=== PATIENT | female | born 1950 | race Caucasian/White ===

== ENCOUNTER → 2020-05-03 | Outpatient (CLI) | payer MEDICARE ==
--- NOTE | 2020-05-04 16:00 | BD ---
EXAMINATION TYPE: Axial Bone Density DATE OF EXAM: 05/03/2020 COMPARISON: 11/23/2015 CLINICAL HISTORY: Height: 66.7 IN Weight: 121 LBS FRAX RISK QUESTIONS: Secondary Osteoporosis: 2. Hyperthyroidism: YES RISK FACTORS HISTORY OF: Active: YES Diet low in dairy products/other sources of calcium: YES Postmenopausal woman: AGE 48 Take estrogen and/or progesterone medications: NOT NOW How lon YEAR MEDICATIONS: Thyroid Medications: YES Which medication: Levothyroxine How Lon Osteoporosis Medications: NOT NOW Which medication: Fosamax How Lon YEARS Additional Medications: CALCIUM, VIT D, LEVOTHYROXINE, LIPITOR, EXAM MEASUREMENTS: Bone mineral densitometry was performed using the [employer] System. Bone mineral density as measured about the Lumbar spine is: ----- L1-L4(G/cm2): 0.829 T Score Values are as follows: ----- L2: -2.7 ----- L3: -2.6 ----- L4: -3.6 ----- L1-L4: -2.9 Bone mineral density has: Decreased -1.1% since study of: 11/23/2015 Bone mineral density about the R hip (g/cm2): 0.774 Bone mineral density about the L hip (g/cm2): 0.793 T Score values are as follows: -----R Neck: -1.9 -----L Neck: -1.8 -----R Total: -2.5 -----L Total: -2.4 Bone mineral density has: Decreased -7.6% since study of: 11/23/2015 IMPRESSION: Osteoporosis (T Score less than -2.5). There is increased fracture risk and therapy is usually indicated based on age. Re-Screen 1-2 years. NOTE: T-SCORE=SD OF THE YOUNG ADULT MEAN.
--- NOTE | 2020-05-17 12:12 | MM ---
Reason for exam: screening (asymptomatic). Last mammogram was performed 1 year and 8 months ago. History: Patient is postmenopausal. Family history of breast cancer in mother and breast cancer in maternal grandmother. 4 excisional biopsies of the right breast. Took estrogen for 2 months. Took progesterone for 2 months. Physical Findings: A clinical breast exam by your physician is recommended on an annual basis and results should be correlated with mammographic findings. MG 3D Screening Mammo W/Cad Bilateral CC and MLO view(s) were taken. Prior study comparison: September 04, 2018, mammogram, performed at [place]. June 29, 2016, bilateral MG 3d screening mammo w/cad. March 22, 2015, bilateral MG screening mammo w CAD. The breast tissue is heterogeneously dense. This may lower the sensitivity of mammography. There are benign appearing round dystrophic calcifications bilaterally. There is no discrete abnormality. ASSESSMENT: Benign, BI-RAD 2 RECOMMENDATION: Routine screening mammogram of both breasts in 1 year.
== END | disposition home or self-care (01) ==
LOC: RADMAMWWP 14:21
PROVIDERS: ATTEND Internal Medicine
DX: Z12.31 Encounter for screening mammogram for malignant neoplasm of breast (principal); M81.0 Age-related osteoporosis without current pathological fracture
CPT/HCPCS: 77063; 77067; 77080

== ENCOUNTER → 2021-06-16 | Outpatient (CLI) | payer MEDICARE ==
--- NOTE | 2021-06-20 11:07 | MM ---
Reason for exam: screening (asymptomatic). Last mammogram was performed 1 year and 1 month ago. History: Patient is postmenopausal. Family history of breast cancer in mother and breast cancer in maternal grandmother. 4 excisional biopsies of the right breast. Took hormonal contraceptives for 2 years. Took estrogen for 2 months. Took progesterone for 2 months. Physical Findings: A clinical breast exam by your physician is recommended on an annual basis and results should be correlated with mammographic findings. MG 3D Screening Mammo W/Cad Bilateral CC and MLO view(s) were taken. Prior study comparison: May 03, 2020, bilateral MG 3d screening mammo w/cad. September 04, 2018, mammogram, performed at [place]. There are scattered fibroglandular densities. Previous mammotome biopsy in the left breast. No significant changes when compared with prior studies. ASSESSMENT: Benign, BI-RAD 2 RECOMMENDATION: Routine screening mammogram of both breasts in 1 year.
== END | disposition home or self-care (01) ==
LOC: RADMAMWWP 09:50
PROVIDERS: ATTEND Internal Medicine
DX: Z12.31 Encounter for screening mammogram for malignant neoplasm of breast (principal); Z80.3 Family history of malignant neoplasm of breast
CPT/HCPCS: 77063; 77067

== ENCOUNTER → 2022-02-27 | Outpatient (CLI) | payer MEDICARE ==
--- NOTE | 2022-02-27 14:05 | XR ---
Left wrist HISTORY: Left wrist pain 4 views the left wrist There is widening of the scapholunate distance. Remodeling is present at the radiocarpal joint. Bone mineralization is reduced. Radial styloid shows lucency which is suspect is chronic distally, correla te for history of trauma. IMPRESSION: Scapholunate dissociation, secondary osteoarthritis, correlate for prior trauma.
== END | disposition home or self-care (01) ==
LOC: RADXRMAIN 10:52
PROVIDERS: ATTEND Internal Medicine
DX: M19.032 Primary osteoarthritis, left wrist (principal)

== ENCOUNTER → 2022-03-19 | Outpatient (CLI) | payer MEDICARE ==
--- NOTE | 2022-03-19 09:13 | XR ---
EXAMINATION TYPE: XR KUB DATE OF EXAM: 03/19/2022 COMPARISON: NONE HISTORY: Pain TECHNIQUE: One view abdominal series FINDINGS: The osseous structures are intact. The bowel gas pattern is nonspecific. Scoliotic curvature of the spine. Calcifications in the right pelvic base and are likely outside the course of the tract. Keith cifications overlying the renal outlines are not identified. IMPRESSION: 1. Nonspecific abdomen.
== END | disposition home or self-care (01) ==
LOC: RADXRMAIN 08:05
PROVIDERS: ATTEND Internal Medicine
DX: R10.9 Unspecified abdominal pain (principal); R82.90 Unspecified abnormal findings in urine
CPT/HCPCS: 74018

== ENCOUNTER → 2022-05-07 | Outpatient (CLI) | payer MEDICARE ==
--- NOTE | 2022-05-07 10:15 | BD ---
EXAMINATION TYPE: Axial Bone Density DATE OF EXAM: 05/07/2022 COMPARISON: NONE CLINICAL HISTORY: 71 years year old Female. ICD-10 CODE: M81.0 OSTEOPOROSIS Height: 67 Weight: 120.5 FRAX RISK QUESTIONS: Alcohol (3 or more units per day): NO Family History (Parent hip fracture): NO Glucocorticoids (More than 3mos): NO History of Fracture in Adulthood: NO Secondary Osteoporosis: 1. Type 1 Diabetes: NO 2. Hyperthyroidism: NO 3. Menopause before 45: NO 4. Malnutrition: NO 5. Chronic liver disease: NO Rheumatoid Arthritis: NO Current Tobacco Use: NO RISK FACTORS HISTORY OF: Hip Fracture (Right/Left): NO Spine Fracture: NO History of Wrist Fracture: NO Surgery to Spine/Hip(right/left)/Wrist (right/left): NO Family History of Osteoporosis: NO Active: YES Diet low in dairy products/other sources of calcium: YES Postmenopausal woman: YES Take estrogen and/or progesterone medications: NO Lost more than 2 inches in height since high school: NO Frequent falls: NO Poor Health: NO Hyperparathyroidism: NO Adrenal Insufficiency: NO MEDICATIONS: Prednisone or other steroids: NO Thyroid Medications: LEVOTHYROXIN How Lon YEARS Osteoporosis Medications: NO Additional Medications: ATORVASTATIN, LEVOTHYROXIN, MULTI VIT., CALCIUM Additional History: EXAM MEASUREMENTS: Bone mineral densitometry was performed using the [employer] System. Bone mineral density as measured about the Lumbar spine is: ----- L1-L4(G/cm2): 0.813 T Score Values are as follows: ----- L1: -3.1 ----- L2: -2.6 ----- L3: --2.7 ----- L4: -3.8 ----- L1-L4: -3.1 Bone mineral density has: DECREASED 2.6 % since study of: 11/23/2015 Bone mineral density about the R hip (g/cm2): 0.777 Bone mineral density about the L hip (g/cm2): 0.821 T Score values are as follows: -----R Neck: -1.9 -----L Neck: -1.6 -----R Total: -2.3 -----L Total: -2.0 Bone mineral density has: DECREASE 3.7 % since study of: 11/23/2015 FRAX%s: The graph provided illustrates a 10.2% chance for a major osteoporotic fx and a 2.5% chance f or the hips probability for fx in 10 years time. IMPRESSION: Osteoporosis (T Score less than -2.5). There is increased fracture risk and therapy is usually indicated based on age. Re-Screen 1-2 years. NOTE: T-SCORE=SD OF THE YOUNG ADULT MEAN.
== END | disposition home or self-care (01) ==
LOC: RADBDWWP 09:00
PROVIDERS: ATTEND Internal Medicine
DX: M81.0 Age-related osteoporosis without current pathological fracture (principal)
CPT/HCPCS: 77080

== ENCOUNTER 2023-02-15 21:41 | Inpatient (IN) | payer MEDICARE ==
[2023-02-15 21:57] LABS: Basophils % (A) 0 %; Eosinophils # (A) 0.2 k/uL (0-0.7); Eosinophils % (A) 1 %; HCT 36.2 % (34.0-46.0); HGB 12.4 gm/dL (11.4-16.0); Lymphocytes # (A) 0.8 k/uL (1.0-4.8); Lymphocytes % (A) 4 %; MCH 30.9 pg (25.0-35.0); MCHC 34.4 g/dL (31.0-37.0); Mean Platelet Volume 6.5; Monocytes # (A) 0.6 k/uL (0-1.0); Monocytes % (A) 3 %; Neutrophils # (A) 16.3 k/uL (1.3-7.7); Neutrophils % (A) 91 %; Platelet Count 369 k/uL (150-450); RBC 4.02 m/uL (3.80-5.40); WBC 17.9 k/uL (3.8-10.6)
--- NOTE | 2023-02-15 22:11 | XR ---
EXAMINATION TYPE: XR chest 1V portable DATE OF EXAM: 02/15/2023 10:03 PM COMPARISON: None TECHNIQUE: XR chest 1V portable Frontal view of the chest. CLINICAL INDICATION:Female, 72 years old with history of altered mental status; FINDINGS: Lungs/Pleura: Prominent interstitial lung markings are seen scattered throughout the lungs. No eviden ce of focal consolidation, pneumothorax or pleural effusion. Pulmonary vascularity: Unremarkable. Heart/mediastinum: Cardiomediastinal silhouette is unremarkable. Musculoskeletal: No acute osseous pathology. IMPRESSION: Chronic changes without acute pulmonary process. No significant change from prior.
--- NOTE | 2023-02-15 22:11 | CT ---
EXAMINATION TYPE: CT brain wo con CT DLP: 1177 mGycm, Automated exposure control for dose reduction was used. DATE OF EXAM: 02/15/2023 9:56 PM COMPARISON: None. CLINICAL INDICATION:Female, 72 years old with history of Neuro deficit, acute, stroke suspected, TECHNIQUE: Brain: Axial CT images of the brain were obtained with coronal and sagittal reformats created and rev iewed. Contrast used: None. Oral contrast used: None. FINDINGS: Brain: Extra-axial spaces: No abnormal extra-axial fluid collections. Ventricular system: Within normal limits Cerebral parenchyma: Intra-axial masslike area within the right temporal lobe measuring 5.1 x 4.5 x 3 .0 cm. There is mild surrounding vasogenic edema. No acute intraparenchymal hemorrhage or mass effect . The moreno-white junction is well differentiated. Cerebellum: Unremarkable. Mass effect: Leftward shift up to 10 mm. Intracranial vasculature: unremarkable Soft tissues: Normal. Calvarium/osseous structures: No depressed skull fracture. Paranasal sinuses and mastoid air cells: Mild scattered paranasal sinus disease. Visualized orbits: Orbital contents are intact. IMPRESSION: 1. Right temporal lobe masslike area with surrounding vasogenic edema. Findings suspicious for neopl asm versus other etiologies felt to be less likely. Further evaluation with MRI is recommended. There is associated leftward 10 mm midline shift. 2. No evidence for acute/subacute CVA.
[2023-02-15 22:15] LABS: ALT 22 U/L (4-34); AST 23 U/L (14-36); African American GFR (CKD) >90 (>60 ml/min/1.73 sqM); Albumin 4.4 g/dL (3.5-5.0); Alkaline Phosphatase 69 U/L (38-126); Anion Gap 13 mmol/L; Blood Urea Nitrogen 15 mg/dL (7-17); Calcium 9.3 mg/dL (8.4-10.2); Carbon Dioxide 24 mmol/L (22-30); Chloride 95 mmol/L (98-107); Creatine Kinase 37 U/L (30-135); Glucose 155 mg/dL (74-99); Non-African American GFR(CKD) 86 (>60 ml/min/1.73 sqM); Potassium 4.5 mmol/L (3.5-5.1); Sodium 132 mmol/L (137-145); Total Bilirubin 0.9 mg/dL (0.2-1.3); Total Protein 7.2 g/dL (6.3-8.2)
[2023-02-15 22:30] LABS: Partial Thromboplastin Time 21.5 sec (22.0-30.0)
[2023-02-15 22:35] LABS: Prothrombin Time 10.6 sec (9.0-12.0)
--- NOTE | 2023-02-15 22:58 | CT ---
EXAMINATION TYPE: CT angio head neck CT DLP: 417 mGycm, Automated exposure control for dose reduction was used. DATE OF EXAM: 02/15/2023 10:25 PM COMPARISON: CT same day CLINICAL INDICATION:Female, 72 years old with history of Neuro deficit, acute, stroke suspected; PHH, CODE STROKE TECHNIQUE: Axially acquired helical CT angiogram of the head and neck was obtained with contrast. Axi al images are supplemented with 3D reconstructions which [facility] NASCET criteria used. Contrast used:65 CC mL of Isovue 370 with IV Contrast, Oral contrast used: None. FINDINGS: CTA HEAD: Stable intracranial mass within the right cerebrum/temporal lobe with leftward midline shift. There m ay be a couple curvilinear vessels entering this mass series 406 image 48. No evidence of acute intracranial hemorrhage, mass effect. The ventricles, sulci, and cisterns are un remarkable. Bilaterally aphakia. The visualized portions of the internal carotid arteries, middle cerebral arteries, anterior cerebral arteries, and posterior cerebral arteries are patent. The basilar and vertebral arteries are patent. CTA NECK: Right Carotid System: The common carotid artery and external carotid artery are patent. The carotid bifurcation demonstrate s no evidence of hemodynamically significant stenosis. The remaining portions of the internal carotid artery demonstrate normal size without significant narrowing. Left Carotid System: The common carotid artery and external carotid artery are patent. The carotid bifurcation demonstrate s no evidence of hemodynamically significant stenosis. The remaining portions of the internal carotid artery demonstrate normal size without significant narrowing. Vertebral arteries are patent without evidence hemodynamically significant stenosis. There is a three-vessel aortic arch. The origins of the great vessels are patent. No evidence of hemo dynamically significant stenosis. Upper thorax: IMPRESSION: 1. No evidence of dissection of the cervical internal carotid arteries or vertebral arteries or any e vidence of significant stenosis at the carotid bifurcations. 2. No evidence of intracranial high-grade stenosis or intracranial aneurysm. 3. Right temporal lobe probable mass as seen on prior CT.
[2023-02-15] MEDS ORDERED: DEXAMETHASONE SOD PHOSPHATE 10 MG/ML 1 ML VIAL IVP STA (23:16)
[2023-02-15] MEDS ORDERED: MORPHINE SULFATE 2 MG/ML SYRINGE IVP STA (23:48)
[2023-02-16] MEDS ORDERED: MORPHINE SULFATE 2 MG/ML SYRINGE IV PRN (00:28)
[2023-02-16] MEDS ORDERED: ACETAMINOPHEN TAB 325 MG TAB PO PRN (00:28)
[2023-02-16] MEDS ORDERED: NALOXONE 0.4 MG/ML 1 ML VIAL IV PRN (00:28)
--- NOTE | 2023-02-16 03:24 | ED ---
General Adult HPI - General Chief complaint: Weakness Stated complaint: Stroke-like symptoms Time Seen by Provider: 02/15/23 21:45 Source: patient, family, EMS, RN notes reviewed, old records reviewed Mode of arrival: EMS - History of Present Illness Initial comments: She is a 72-year-old female who presents emergency Department as a code stroke. Has a history of brain cancer recently diagnosed. Patient is DO NOT RESUSCITATE. Elected for no surgeries. Patient presents with family over concern for left-sided weakness of the upper and lower extremities that was onset sometime over the last 24 hours. No known exact time of onset. He is not on blood thinners. Also has a mild headache. Denies any chest pain or shortness of breath. Denies any abdominal pain, nausea, vomiting. Presents with the weakness and evaluation for possible stroke. Patient did receive a bio psy last week, and was on steroids for vasogenic edema, however has been off them for the last 4 days. They do not want any procedures done. Was going to speak with oncology about possible palliative treatments. - Related Data Home Medications Medication Instructions Recorded Confirmed ALPRAZolam [Xanax] 0.5 - 1 mg PO DAILY PRN 02/15/23 02/15/23 Atorvastatin [Lipitor] 20 mg PO HS 02/15/23 02/15/23 Cholecalciferol [Vitamin D3 (25 25 mcg PO DAILY 02/15/23 02/15/23 Mcg = 1000 Iu)] Levothyroxine Sodium [Synthroid] 25 mcg PO SUSA 02/15/23 02/15/23 Levothyroxine Sodium [Synthroid] 50 mcg PO DAILY 02/15/23 02/15/23 Multivitamins, Thera [Multivitamin 0.5 tab PO BID 02/15/23 02/15/23 (formulary)] Omeprazole 20 mg PO DAILY 02/15/23 02/15/23 Sertraline [Zoloft] 50 mg PO DAILY 02/15/23 02/15/23 dexAMETHasone [Decadron] 1 mg PO DAILY 02/15/23 02/15/23 levETIRAcetam [Keppra] 500 mg PO Q12HR 02/15/23 02/15/23 Allergies Allergy/AdvReac Type Severity Reaction Status Date / Time No Known Allergies Allergy Verified 02/15/23 22:39 Review of Systems ROS Statement: Those systems with pertinent positive or pertinent negative responses have been documented in the HPI. Review of Systems: CONST: Denies fever EYES: Denies blurry vision ENT: Denies nasal congestion C/V: Denies Chest pain RESP: Denies shortness of breath GI: Denies abdominal pain : Denies dysuria SKIN: Denies rash. MSK: Denies joint pain. NEURO: Endorses left-sided weakness ROS Other: All systems not noted in ROS Statement are negative. General Exam - General Exam Comments Initial Comments: General: Appears in no acute distress. HEAD: Normal with no signs of head trauma. EYES: PERRLA, EOMI, conjunctiva normal, no discharge. ENT: Hearing grossly intact, normal oropharynx. RESPIRATORY: Clear breath sounds bilaterally. No wheezes, rales, or rhonchi. C/V: Regular rate and rhythm. S1 and S2 auscultated, peripheral pulses 2+ and intact throughout ABD: Abd is soft, nontender, nondistended EXT: Normal range of motion, no obvious deformity SKIN: No rashes or lesions observed on exposed skin. NEURO: Alert and oriented 3-4. NIH is approximately 3, 1. for left upper extremity weakness, 1. for left lower extremity weakness, 1 point for left upper extremity ataxia. Course Vital Signs 02/15/23 02/15/23 02/15/23 21:43 22:15 23:00 Temperature 100.2 F H Pulse Rate 84 69 67 Respiratory 18 18 18 Rate Blood Pressure 146/71 128/70 114/67 O2 Sat by Pulse 96 96 98 Oximetry 02/16/23 01:10 Temperature Pulse Rate 70 Respiratory 18 Rate Blood Pressure 122/61 O2 Sat by Pulse 98 Oximetry Medical Decision Making - Medical Decision Making Was pt. sent in by a medical professional or institution (, PA, HAND EDGER, urgent care, hospital, or retirement...) When possible be specific @ -No Did you speak to anyone other than the patient for history (EMS, parent, family, police, friend...)? What history was obtained from this source @ -Spoke with the patient's as well as the patient regarding CODE STATUS as well as patient's current complaints. This includes the desire for no surgical intervention, and possible palliative care. Did you review nursing and triage notes (agree or disagree)? Why? @ -I reviewed and agree with nursing and triage notes Were old charts reviewed (outside hosp., previous admission, EMS record, old EKG, old radiological studies, urgent care reports/EKG's, retirement records)? Report findings @ -No old charts were reviewed Differential Diagnosis (chest pain, altered mental status, abdominal pain women, abdominal pain men, vaginal bleeding, weakness, fever, dyspnea, syncope, headache, dizziness, GI bleed, back pain, seizure, CVA, palpatations, mental health, musculoskeletal)? @ -Differential CVA Ischemic stroke, hemorrhagic stroke, brain tumor, atypical migraine, Wernicke's encephalopathy, seizure, multiple sclerosis, meningitis, encephalitis, hy poglycemia, Guillain-Friedman, electrolytes disturbance, myasthenia gravis.... This is not meant to be an all-inclusive list EKG interpreted by me (3pts min.). @ -As above X-rays interpreted by me (1pt min.). @ -Chest x-ray reveals no obvious acute cardio pulmonary process CT interpreted by me (1pt min.). @ -CT brain demonstrates an obvious right temporal mass surrounding vasogenic edema and patient does have some midline shift of approximately [address] angiogram of the brain redemonstrates this. No obvious CVA or occlusive process. U/S interpreted by me (1pt. min.). @ -None done What testing was considered but not performed or refused? (CT, X-rays, U/S, labs)? Why? @ -None What meds were considered but not given or refused? Why? @ -None Did you discuss the management of the patient with other professionals (professionals i.e. , PA, HAND EDGER, lab, RT, psych nurse, web content & social media manager, kiln charger, teacher, armor officer, patient case manager)? Give summary @ -Discussed management with the accepting physician Dr. Parks who is in agreement with the plan. Also discussed management with on-call neurology, Dr. Briggs. He was in agreement with keeping the patient here for treatment with IV steroids. We discussed imaging results including midline shift, vasogenic edema, as well as the history of brain cancer. As the patient is DNR/DNI, and no surgical interventions will be performed, any form of neurosurgical evaluation is extremely limited in terms of benefit. Was smoking cessation discussed for >3mins.? @ -No Was critical care preformed (if so, how long)? @ -Yes, 35 minutes. Were there social determinants of health that impacted care today? How? (Homelessness, low income, unemployed, alcoholism, drug addiction, transportation, low edu. Level, literacy, decrease access to med. care, halfway, rehab)? @ -No Was there de-escalation of care discussed even if they declined (Discuss DNR or withdrawal of care, Hospice)? DNR status @ -Yes I confirmed DO NOT RESUSCITATE status with patient as well as family. No desire for surgical intervention. What co-morbidities impacted this encounter? (DM, HTN, Smoking, COPD, CAD, Cancer, CVA, ARF, Chemo, Hep., AIDS, mental health diagnosis, sleep apnea, morbid obesity)? @ -Brain cancer Was patient admitted / discharged? Hospital course, mention meds given and route, prescriptions, significant lab abnormalities, going to OR and other pertinent info. @ -Based on the patient's presentation and physical exam, she presents as a code stroke. Initially presented with EMS alone. Unknown last known well, but it was some time within the last 24 hours. She has a history of brain cancer and therefore is not a TPA candidate. TPA is contraindicated. Risks far ou tweigh the benefits. NIH is 3. Code stroke was activated. We will obtain stroke labs. Patient was in agreement this plan. I spoke with stroke neuro critical care physician Dr. Gonzales who was in agreement this plan, as well as likely medical management concerning the patient's brain cancer. Imaging shows vasogenic edema with a right-sided temporal mass as well as midline shift. All secondary to brain cancer. No evidence of CVA. Labs otherwise are remarkable for mild leukocytosis of 17 the patient did recently just completed a course of steroids. Remainder of labs are unremarkable. I did speak with the patient as well as family at this time. We discussed possible transfer to any foreign where the biopsy was completed however they do not want any surgical intervention and wanted the patient to remain here at this hospital. Patient is DO NOT RESUSCITATE. They're looking for palliative care possibly with oncology. They understand the patient is a poor prognosis and they do not want any extra interventions that would not benefit the patient at this point. They declined transfer. I did speak with our neurologist on-call, Dr. Briggs who was in agreement keeping the patient here. He was in agreement with IV steroids, as I did start the patient on IV Decadron 10 mg and he recommended 6 mg every 6hr. Patient will be given IV morphine for her headache. After the patient's family and they were in agreement with this plan. They would like to remain here. Oncology was consulted. Neurology was consulted. I spoke with the admitting physician, Dr. Parks who accepted the patient. Undiagnosed new problem with uncertain prognosis? @ -No Drug Therapy requiring intensive monitoring for toxicity (Heparin, Nitro, Insulin, Cardizem)? @ -No Were any procedures done? @ -No Diagnosis/symptom? @ -Brain cancer, vasogenic edema, 10 mm midline shift. Acute, or Chronic, or Acute on Chronic? @ -Acute Uncomplicated (without systemic symptoms) or Complicated (systemic symptoms)? @ -Complicated Side effects of treatment? @ -No Exacerbation, Progression, or Severe Exacerbation? @ -No Poses a threat to life or bodily function? How? (Chest pain, USA, [place], pneumonia, PE, COPD, DKA, ARF, appy, cholecystitis, CVA, Diverticulitis, Homicidal, Suicidal, threat to staff... and all critical care pts) @ -Yes - Lab Data Result diagrams: 02/15/23 21:49 02/15/23 21:49 Lab Results 02/15/23 02/15/23 02/15/23 Range/Units 21:49 21:49 21:49 WBC 17.9 H (3.8-10.6) k/uL RBC 4.02 (3.80-5.40) m/uL Hgb 12.4 (11.4-16.0) gm/dL Hct 36.2 (34.0-46.0) % MCV 90.0 (80.0-100.0) fL MCH 30.9 (25.0-35.0) pg MCHC 34.4 (31.0-37.0) g/dL RDW 12.0 (11.5-15.5) % Plt Count 369 (150-450) k/uL MPV 6.5 Neutrophils % 91 % Lymphocytes % 4 % Monocytes % 3 % Eosinophils % 1 % Basophils % 0 % Neutrophils # 16.3 H (1.3-7.7) k/uL Lymphocytes # 0.8 L (1.0-4.8) k/uL Monocytes # 0.6 (0-1.0) k/uL Eosinophils # 0.2 (0-0.7) k/uL Basophils # 0.0 (0-0.2) k/uL PT 10.6 (9.0-12.0) sec INR 1.0 (<1.2) APTT 21.5 L (22.0-30.0) sec Sodium 132 L (137-145) mmol/L Potassium 4.5 (3.5-5.1) mmol/L Chloride 95 L (98-107) mmol/L Carbon Dioxide 24 (22-30) mmol/L Anion Gap 13 mmol/L BUN 15 (7-17) mg/dL Creatinine 0.70 (0.52-1.04) mg/dL Est GFR (CKD-EPI)AfAm >90 (>60 ml/min/1.73 sqM) Est GFR (CKD-EPI)NonAf 86 (>60 ml/min/1.73 sqM) Glucose 155 H (74-99) mg/dL Calcium 9.3 (8.4-10.2) mg/dL Total Bilirubin 0.9 (0.2-1.3) mg/dL AST 23 (14-36) U/L ALT 22 (4-34) U/L Alkaline Phosphatase 69 (38-126) U/L Creatine Kinase 37 (30-135) U/L Troponin I (0.000-0.034) ng/mL Total Protein 7.2 (6.3-8.2) g/dL Albumin 4.4 (3.5-5.0) g/dL 02/15/23 Range/Units 21:49 WBC (3.8-10.6) k/uL RBC (3.80-5.40) m/uL Hgb (11.4-16.0) gm/dL Hct (34.0-46.0) % MCV (80.0-100.0) fL MCH (25.0-35.0) pg MCHC (31.0-37.0) g/dL RDW (11.5-15.5) % Plt Count (150-450) k/uL MPV Neutrophils % % Lymphocytes % % Monocytes % % Eosinophils % % Basophils % % Neutrophils # (1.3-7.7) k/uL Lymphocytes # (1.0-4.8) k/uL Monocytes # (0-1.0) k/uL Eosinophils # (0-0.7) k/uL Basophils # (0-0.2) k/uL PT (9.0-12.0) sec INR (<1.2) APTT (22.0-30.0) sec Sodium (137-145) mmol/L Potassium (3.5-5.1) mmol/L Chloride (98-107) mmol/L Carbon Dioxide (22-30) mmol/L Anion Gap mmol/L BUN (7-17) mg/dL Creatinine (0.52-1.04) mg/dL Est GFR (CKD-EPI)AfAm (>60 ml/min/1.73 sqM) Est GFR (CKD-EPI)NonAf (>60 ml/min/1.73 sqM) Glucose (74-99) mg/dL Calcium (8.4-10.2) mg/dL Total Bilirubin (0.2-1.3) mg/dL AST (14-36) U/L ALT (4-34) U/L Alkaline Phosphatase (38-126) U/L Creatine Kinase (30-135) U/L Troponin I <0.012 (0.000-0.034) ng/mL Total Protein (6.3-8.2) g/dL Albumin (3.5-5.0) g/dL - EKG Data -: EKG Interpreted by Me EKG Comments: 12-lead Electrocardiogram Interpretation Note EKG was reviewed and interpreted by myself. 12-lead ECG performed at 2236 is interpreted by me as revealing normal sinus rhythm at a rate of 71 beats per minute. Mauldin is normal. MO Intervals 154 ms, QRS duration is 91 ms, QTc is 412 ms.. There were no ST or T wave abnormalities to suggest myocardial ischemia or injury. R wave progression across the precordium was satisfactory. By my interpretation this EKG is non-diagnostic for acute ischemia. Critical Care Time Critical Care Time: Yes Total Critical Care Time: 35 Disposition Clinical Impression: Brain cancer, Vasogenic edema, Midline shift of brain, DNR (do not resuscitate) Disposition: ADMITTED IP TO THIS [facility] Condition: Serious Time of Disposition: 00:11
[2023-02-16] MEDS: DEXAMETHASONE SOD PHOSPHATE 10 MG/ML 1 ML VIAL IVP SCH ×4 (06:16→23:31)
[2023-02-16] MEDS: levETIRAcetam 500 MG TAB PO SCH ×2 (10:29→20:51)
--- NOTE | 2023-02-16 12:20 | P.CNNES ---
History of Present Illness Consult date: 02/16/23 Requesting physician: Tesfaye Wilder Reason for Consult: stroke activiation, brain tumor History of Present Illness: This is a 72 year-old woman with history of brain cancer who presents image department because of left-sided weakness. Some of the history is obtained from patient's who is at bedside and some history from medical records. According to the is seems the patient yesterday was having bilateral leg weakness. He noticed that after the patient received tramadol. He noticed the symptoms began possibly early afternoon. And the episode lasted for at least 5 hours on total EMS was called. was adamant that that he did not feel she was weak on the left upper extremity according to him. No seizure-like activity was noted. She has completed her steroid medication and she was on steroids for 4 days and complete her dose on Saturday. Because of the headaches and her recent episode,did inform the her neurosurgeon I got about episode and as a result were given another dose of steroids yesterday. Patient and family do not want of Lian with any surgical intervention for the right brain mass. She had recent needle biopsy to slightly over a weeks ago and were informed that she has glioblastoma multiforme. Patient follows up with a neurosurgeon over at [facility]. Per , he stated patient has right brain mass and it was noted initially that she had a seizure in November 2022 while at [place] and she had MRI of the brain which showed the brain mass. She has not had any further seizures. She had two additional MRI Brain and most recent MRI of the brain was about 2 weeks ago and showed worsening of the brain mass with swelling. Per the ED team and family member or concerns the patient has a recent left- sided weakness over the past 24 hours before presented to the hospital. Unknown exact last normal. It seems the patient has a recent history of brain cancer and the she elected no surgery. Patient did receive biopsy for her cancer a week ago and she is on steroids for. Vasogenic edema however she's been off of them for the past 4 days ago. Family do not want any surgical intervention for brain cancer and considering speaking with her oncologist about palliative treatment. Patientis on Keppra 500mg every 12 hours and Decadron 1mg daily. Some of the workup during his hospital visit consisted of: Initial white blood cells 17.[address] head is reported as right temporal lobe mass like area with surrounding vasogenic edema. Finding suspicious for neoplasm versus other etiologies but to be less likely. Further evaluation with MRI is recommended. There is associated left for 10 mm midline shift. No evidence for acute/subacute CVA. I personally reviewed the CAT scan and in addition patient has constricted ventri lenore over the posterior/occipital right latera horn and very constricted 3rd ventricles. Has hydrocephalus over the left lateral horn. Per the ED team NIH stroke stacel is 3-4 and received points for 1 left upper extremity weakness, 1 left lower extremity weakness. 1 left upper extremity ataxia No IV tpa since unknown exact last normal and has brain mass and risk outweight the benefit. The ED note it seems that the patient coded is DO NOT RESUSCITATE or intubate and the there is no desire for surgical intervention and possible Pat of care. She has a vasogenic edema and the Dr. Briggs agreed for her to receive IV steroids. Review of Systems Review of system: The 12 point system was reviewed and apparent positive and negative per HPI. Medications and Allergies Home Medications Medication Instructions Recorded Confirmed Type ALPRAZolam [Xanax] 0.5 - 1 mg PO DAILY PRN 02/15/23 02/15/23 History Atorvastatin [Lipitor] 20 mg PO HS 02/15/23 02/15/23 History Cholecalciferol [Vitamin D3 (25 25 mcg PO DAILY 02/15/23 02/15/23 History Mcg = 1000 Iu)] Levothyroxine Sodium [Synthroid] 25 mcg PO SUSA 02/15/23 02/15/23 History Levothyroxine Sodium [Synthroid] 50 mcg PO DAILY 02/15/23 02/15/23 History Multivitamins, Thera [Multivitamin 0.5 tab PO BID 02/15/23 02/15/23 History (formulary)] Omeprazole 20 mg PO DAILY 02/15/23 02/15/23 History Sertraline [Zoloft] 50 mg PO DAILY 02/15/23 02/15/23 History dexAMETHasone [Decadron] 1 mg PO DAILY 02/15/23 02/15/23 History levETIRAcetam [Keppra] 500 mg PO Q12HR 02/15/23 02/15/23 History Allergies Allergy/AdvReac Type Severity Reaction Status Date / Time No Known Allergies Allergy Verified 02/15/23 22:39 Physical Examination - Vital Signs Vital Signs: Vital Signs Temp Pulse Resp BP Pulse Ox 02/16/23 08:28 97 02/16/23 06:39 70 14 103/49 96 02/16/23 03:47 75 20 122/59 98 02/16/23 03:19 98.9 F 02/16/23 01:10 70 18 122/61 98 02/15/23 23:00 67 18 114/67 98 02/15/23 22:15 69 18 128/70 96 02/15/23 21:43 100.2 F H 84 18 146/71 96 Intake and Output 02/15/23 02/16/23 02/16/23 22:59 06:59 14:59 Other: Weight 54.5 kg GENERAL: The patient is lying in bed and is not in acute distress. NEUROLOGICAL: Higher mental function: The patient is awake, alert, oriented to self and time. She stated she was in [place]. Patient is following simple commands. No aphasia and no neglect. Cranial nerves: The pupils are round, equal and reactive to light. Visual [place] is right homonymous hemianopsia. Extraocular movement is intact no nystagmus is noted. Facial sensation is normal to touch throughout. The facial strength is mild left lower facial weakness. Hearing is mildly to moderately decreased bilaterally to hand rub. Tongue is midline and moved [id number] without any difficulty. No dysarthria is noted. Shoulder shrug is normal bilaterally. Motor: The strength is 5 over 5 throughout. Normal tone and bulk. Cerebellum: Normal finger to nose bilaterally. Sensation: Sensation is normal to touch throughout. Reflexes (right/left): 1+ throughout. Plantars is upgoing over the right but mute over the left. Results - Laboratory Findings CBC and BMP: 02/15/23 21:49 02/15/23 21:49 Abnormal Lab Findings: Abnormal Labs 02/15/23 02/15/23 02/15/23 21:49 21:49 21:49 WBC 17.9 H Neutrophils # 16.3 H Lymphocytes # 0.8 L APTT 21.5 L Sodium 132 L Chloride 95 L Glucose 155 H Assessment and Plan Assessment: Acute transient bilateral leg weakness due to her significant right temporal mass with midline shift. Had NIH stroke scale of 3 per ED team. Cannot exclude focal seizure or rule out stroke/TIA Recent diagnosis of glioblastoma multiform. (has right temporal mass in 11/29 with vasogenic edema and midline shift and had needle biopsy slight above a week ago) . She rrefusing surgical intervention. History of seizure due to #2 in 11/2022 Plan: Per , they are not going to pursue with surgical intervention. They do not want her to be transferred for neurosurgical evaluation and understand she is poor porgnosis and want her to remain in our facility. She had recent MRI Brain about 2 weeks go and were told it was worse. She is following-up with neurosurgeon over at [facility]. She was started on Decadron 6mg every 6 hours with 10mg once. I started her on her home dose of Keppra 500mg every 12 hours. She is started on Morphine for pain. Oncology is consulted. The wants to speak and find out if radiation or chemotherapy will be any beneficial and if not he does not want them. I will not pursue any additional work-up and and patient are in agreement. Prognosis appears poor. is considering hospice. Thank you for the consultation. Time with Patient: Greater than 30
[2023-02-16] MEDS ORDERED: ALPRAZolam 0.5 MG TAB PO PRN (13:56)
[2023-02-16] MEDS ORDERED: DEXAMETHASONE 1 MG PO SCH (14:00)
[2023-02-16] MEDS: PANTOPRAZOLE 40 MG TABLET PO SCH (15:23)
[2023-02-16] MEDS: LEVOTHYROXINE 25 MCG TAB PO SCH (15:23)
[2023-02-16] MEDS: SERTRALINE 50 MG TAB PO SCH (15:23)
[2023-02-16] MEDS: MULTIVITAMINS, THERA 1 EACH TAB PO SCH (20:51)
[2023-02-16] MEDS ORDERED: ATORVASTATIN 20 MG TAB PO SCH (21:00)
[2023-02-16 21:47] LABS: Appearance,Urine Clear (Clear); Bilirubin,Urine Negative (Negative); Blood,Urine Negative (Negative); Color,Urine Yellow; Glucose,Urine (UA) Trace (Negative); Ketones,Urine Trace (Negative); Leukocyte Esterase,Urine Negative (Negative); Nitrite,Urine Negative (Negative); PH, Urine 6.5 (5.0-8.0); Protein,Urine Trace (Negative); Urobilinogen,Urine <2.0 mg/dL (<2.0)
[2023-02-17] MEDS: DEXAMETHASONE SOD PHOSPHATE 10 MG/ML 1 ML VIAL IVP SCH ×2 (05:56→11:13)
[2023-02-17] MEDS: MULTIVITAMINS, THERA 1 EACH TAB PO SCH (08:47)
[2023-02-17] MEDS: SERTRALINE 50 MG TAB PO SCH (08:48)
[2023-02-17] MEDS: levETIRAcetam 500 MG TAB PO SCH (08:48)
[2023-02-17] MEDS: PANTOPRAZOLE 40 MG TABLET PO SCH (08:48)
[2023-02-17] MEDS ORDERED: CHOLECALCIFEROL 25 MCG (1000 IU) TABLET PO SCH (09:00)
--- NOTE | 2023-02-17 10:47 | P.CONS ---
History of Present Illness - Reason for Consult Consult date: 02/16/23 glioblastoma Requesting physician: Tesfaye Wilder - Chief Complaint left sided weakness - History of Present Illness Patient is a 72 year old female with a significant history of glioblastoma. Patient was referred to Dr. Jam Adams. She has her first appt in clinic on 02/20/2023. She has also been referred to radiation oncology but has yet to f/u. HPI is limited as patient is a poor historian. Patient states that she had a seizure earlier this year at which time she had a brain MRI which revealed a mass. Patient recently had a biopsy within the last 1 to 2 weeks which confirmed glioblastoma and was subsequently started on dexamethasone. Patient presented to the emergency room for left-sided weakness and headache. Patient reports she was having a severe headache yesterday and rated it 9 out of 10. She denies visual disturbances, dizziness, and nausea vomiting. Patient also reports that her family's noticed that she was having left sided weakness at which time they brought her to the ER for further evaluation. She reports headache has improved, and that she doesn't feel like she is weaker on her left side. CT head revealed right temporal lobe masslike area with surrounding vasogenic edema. No evidence for acute/subacute CVA CTA head and neck revealed stable intracranial mass within the right cerebrum/temporal lobe with left word midline shift. No evidence of acute intracranial hemorrhage, mass effect. No evidence of dissection of the cervical internal carotid arteries or vertebral arteries or any evidence of significant stenosis at the carotid bifurcations and no evidence of intracranial high-grade stenosis or intracranial aneurysm. Chest x-ray showed chronic changes without acute pulmonary processes. Neurology consulted. Patient did have a temperature of 100.2 upon admission. UA negative for acute infection. WBC 17.9, hemoglobin 12.4, platelets 369,000. Review of Systems 10 point ROS is negative except as stated in the HPI Past Medical History - Past Family History Mother Family Medical History: Cancer Additional Family Medical History / Comment(s): of breast cancer Father Family Medical History: Cancer Additional Family Medical History / Comment(s): from colon cancer Medications and Allergies Home Medications Medication Instructions Recorded Confirmed Type ALPRAZolam [Xanax] 0.5 - 1 mg PO DAILY PRN 02/15/23 02/15/23 History Atorvastatin [Lipitor] 20 mg PO HS 02/15/23 02/15/23 History Cholecalciferol [Vitamin D3 (25 25 mcg PO DAILY 02/15/23 02/15/23 History Mcg = 1000 Iu)] Levothyroxine Sodium [Synthroid] 25 mcg PO SUSA 02/15/23 02/15/23 History Levothyroxine Sodium [Synthroid] 50 mcg PO DAILY 02/15/23 02/15/23 History Multivitamins, Thera [Multivitamin 0.5 tab PO BID 02/15/23 02/15/23 History (formulary)] Omeprazole 20 mg PO DAILY 02/15/23 02/15/23 History Sertraline [Zoloft] 50 mg PO DAILY 02/15/23 02/15/23 History dexAMETHasone [Decadron] 1 mg PO DAILY 02/15/23 02/15/23 History levETIRAcetam [Keppra] 500 mg PO Q12HR 02/15/23 02/15/23 History Allergies Allergy/AdvReac Type Severity Reaction Status Date / Time No Known Allergies Allergy Verified 02/15/23 22:39 Physical Exam Vitals: Vital Signs Temp Pulse Resp BP Pulse Ox 02/16/23 12:00 98.3 F 71 12 121/57 98 02/16/23 09:00 98 F 70 12 132/59 98 02/16/23 08:28 97 02/16/23 06:39 70 14 103/49 96 02/16/23 03:47 75 20 122/59 98 02/16/23 03:19 98.9 F 02/16/23 01:10 70 18 122/61 98 02/15/23 23:00 67 18 114/67 98 02/15/23 22:15 69 18 128/70 96 02/15/23 21:43 100.2 F H 84 18 146/71 96 Intake and Output 02/15/23 02/16/23 02/16/23 22:59 06:59 14:59 Other: Weight 54.5 kg - Constitutional General appearance: average body habitus, no acute distress - EENT Eyes: anicteric sclerae, EOMI ENT: hearing grossly normal - Respiratory Respiratory: bilateral: CTA - Cardiovascular Rhythm: regular Heart sounds: normal: S1, S2 Abnormal Heart Sounds: no systolic murmur, no diastolic murmur, no rub, no S3 Gallop, no S4 Gallop, no click, no other leg Peripheral Edema: bilateral: None - Gastrointestinal General gastrointestinal: soft, no tenderness - Integumentary Integumentary: normal - Neurologic left sided weakness, strength 4/5 in LUE and LLE, no other focal deficits noted - Psychiatric Psychiatric: A&O x's 3, appropriate affect, intact judgment & insight Results CBC & Chem 7: 02/15/23 21:49 02/15/23 21:49 Labs: Abnormal Lab Results - Last 24 Hours (Table) 02/15/23 02/15/23 02/15/23 Range/Units 21:49 21:49 21:49 WBC 17.9 H (3.8-10.6) k/uL Neutrophils # 16.3 H (1.3-7.7) k/uL Lymphocytes # 0.8 L (1.0-4.8) k/uL APTT 21.5 L (22.0-30.0) sec Sodium 132 L (137-145) mmol/L Chloride 95 L (98-107) mmol/L Glucose 155 H (74-99) mg/dL Comments: CTA head and neck reviewed Chest x-ray: report reviewed CT Scan - head: report reviewed Assessment and Plan (1) Glioblastoma Current Visit: Yes Status: Acute Priority: High Code(s): C71.9 - MALIGNANT NEOPLASM OF BRAIN, UNSPECIFIED SNOMED Code(s): 894608707 Plan: Glioblastoma: -Patient was referred to Dr. Jam Adams. She has her first appt in clinic on 02/20/2023. She has also been referred to radiation oncology but has yet to f/u. -HPI is limited as patient is a poor historian. Patient states that she had a seizure earlier this year at which time she had a brain MRI in [place], [place] which revealed a mass. Patient recently had a biopsy within the last 1 to 2 weeks which confirmed glioblastoma and was subsequently started on dexamethasone. Will obtain biopsy results -CT head revealed right temporal lobe masslike area with surrounding vasogenic edema. No evidence for acute/subacute CVA. CTA head and neck revealed stable intracranial mass within the right cerebrum/temporal lobe with left word midline shift. No evidence of acute intracranial hemorrhage, mass effect. No evidence of dissection of the cervical internal carotid arteries or vertebral arteries or any evidence of significant stenosis at the carotid bifurcations and no evidence of intracranial high-grade stenosis or intracranial aneurysm. -Spoke to primary RN who states she spoke to earlier today and he was requesting a hospice consult. Will consult hospice to speak to patient and family.
[2023-02-17 12:15] VITALS: BP 137/68; PULSE 69; RESP 12; TEMP 98.2
--- NOTE | 2023-02-17 13:24 | P.PN ---
Subjective Progress Note Date: 02/17/23 Patient is seen at bedside and stated is doing well. Denies nausea, vomiting. Denies of any significant headache. Objective - Vital Signs Vital signs: Vital Signs Temp 98.2 F 02/17/23 11:31 Pulse 69 02/17/23 11:31 Resp 12 02/17/23 11:31 BP 137/68 02/17/23 11:31 Pulse Ox 99 02/17/23 11:31 FiO2 Intake & Output 02/16/23 02/17/23 02/17/23 18:59 06:59 18:59 Weight 54.5 kg Other: Voiding Method Bedside Commode Bedside Commode # Voids 3 - Exam GENERAL: The patient is lying in bed and is not in acute distress. NEUROLOGICAL: Higher mental function: The patient is awake, alert, oriented to self, place and time. Patient is following simple commands. No aphasia and no neglect. Cranial nerves: The pupils are round, equal and reactive to light. Visual [place] is right homonymous hemianopsia. Extraocular movement is intact no nystagmus is noted. Facial sensation is normal to touch throughout. The facial strength is mild left lower facial weakness. Tongue is midline and moved [id number] without any difficulty. No dysarthria is noted. Shoulder shrug is normal bilaterally. Motor: The strength is 5 over 5 throughout. Normal tone and bulk. Cerebellum: Normal finger to nose bilaterally. Sensation: Sensation is normal to touch throughout. Reflexes (right/left): 1+ throughout. Plantars is upgoing over the right but mute over the left. Some of the workup during his hospital visit consisted of: Initial white blood cells 17.[address] head is reported as right temporal lobe mass like area with surrounding vasogenic edema. Finding suspicious for neoplasm versus other etiologies but to be less likely. Further evaluation with MRI is recommended. There is associated left for 10 mm midline shift. No evidence for acute/subacute CVA. I personally reviewed the CAT scan and in addition patient has constricted ventricle over the posterior/occipital right latera horn and very constricted 3rd ventricles. Has hydrocephalus over the left lateral horn. Per the ED team NIH stroke stacel is 3-4 and received points for 1 left upper extremity weakness, 1 left lower extremity weakness. 1 left upper extremity ataxia - Labs CBC & Chem 7: 02/15/23 21:49 02/15/23 21:49 Labs: Abnormal Lab Results - Last 24 Hours (Table) 02/16/23 Range/Units 21:30 Urine Protein Trace H (Negative) Urine Glucose (UA) Trace H (Negative) Urine Ketones Trace H (Negative) Assessment and Plan Assessment: Acute transient bilateral leg weakness due to her significant right temporal mass with midline shift. Had NIH stroke scale of 3 per ED team. Cannot exclude focal seizure or rule out stroke/TIA Recent diagnosis of glioblastoma multiform. (has right temporal mass in 11/29 with vasogenic edema and midline shift and had needle biopsy slight above a week ago) . She rrefusing surgical intervention. History of seizure due to #2 in 11/2022 Plan: Per , they are not going to pursue with surgical intervention. They do not want her to be transferred for neurosurgical evaluation and understand she is poor porgnosis and want her to remain in our facility. She had recent MRI Brain about 2 weeks go and were told it was worse. She is following-up with neurosurgeon [facility] at [facility]. She was started on Decadron 6mg every 6 hours. Continue home Keppra 500mg every 12 hours. On Morphine for pain. Oncology is consulted. The wants to speak and find out if radiation or chemotherapy will be any beneficial and if not he does not want them. I will not pursue any additional work-up and and patient are in agreement. Prognosis appears poor. Tae requesting hospice according to nurse. Otherwise no additional neurological work-up. Please notify neurology team if any further concerns. Dr. Briggs will start neurology service tomorrow A.M. Time with Patient: Less than 30
--- NOTE | 2023-02-17 14:08 | P.HPIM ---
History of Present Illness Chief Complaint: Weakness 72-year-old female who presents emergency Department as a code stroke. Has a history of brain cancer recently diagnosed. Patient is DO NOT RESUSCITATE. Elected for no surgeries. Patient presents with family over concern for left- sided weakness of the upper and lower extremities that was onset sometime over the last 24 hours. No known exact time of onset. He is not on blood thinners. Also has a mild headache. Denies any chest pain or shortness of breath. Denies any abdominal pain, nausea, vomiting. Presents with the weakness and evaluation for possible stroke. Patient did receive a biopsy last week, and was on steroids for vasogenic edema, however has been off them for the last 4 days. They do not want any procedures done. Was going to speak with oncology about possible palliative treatments. Initial white blood cells 17.[address] head is reported as right temporal lobe mass like area with surrounding vasogenic edema. Finding suspicious for neoplasm versus other etiologies but to be less likely. Further evaluation with MRI is recommended. There is associated left for 10 mm midline shift. No evidence for acute/subacute CVA. I personally reviewed the CAT scan and in addition patient has constricted ventricle over the posterior/occipital right latera horn and very constricted 3rd ventricles. Has hydrocephalus over the left lateral horn. Per the ED team NIH stroke stacel is 3-4 and received points for 1 left upper extremity weakness, 1 left lower extremity weakness. 1 left upper extremity ataxia No IV tpa since unknown exact last normal and has brain mass and risk outweight the benefit. Review of Systems REVIEW OF SYSTEMS: CONSTITUTIONAL: No fever, no malaise, no fatigue. HEENT: No recent visual problems or hearing problems. Denied any sore throat. CARDIOVASCULAR: No chest pain, orthopnea, PND, no palpitations, no syncope. PULMONARY: No shortness of breath, no cough, no hemoptysis. GASTROINTESTINAL: No diarrhea, no nausea, no vomiting, no abdominal pain. NEUROLOGICAL: No headaches, no weakness, no numbness. HEMATOLOGICAL: Denies any bleeding or petechiae. GENITOURINARY: Denies any burning micturition, frequency, or urgency. MUSCULOSKELETAL/RHEUMATOLOGICAL: Denies any joint pain, swelling, or any muscle pain. ENDOCRINE: Denies any polyuria or polydipsia. The rest of the 14-point review of systems is negative. Past Medical History - Past Family History Mother Family Medical History: Cancer Additional Family Medical History / Comment(s): of breast cancer Father Family Medical History: Cancer Additional Family Medical History / Comment(s): from colon cancer Medications and Allergies Home Medications Medication Instructions Recorded Confirmed Type ALPRAZolam [Xanax] 0.5 - 1 mg PO DAILY PRN 02/15/23 02/15/23 History Atorvastatin [Lipitor] 20 mg PO HS 02/15/23 02/15/23 History Cholecalciferol [Vitamin D3 (25 25 mcg PO DAILY 02/15/23 02/15/23 History Mcg = 1000 Iu)] Levothyroxine Sodium [Synthroid] 25 mcg PO SUSA 02/15/23 02/15/23 History Levothyroxine Sodium [Synthroid] 50 mcg PO DAILY 02/15/23 02/15/23 History Multivitamins, Thera [Multivitamin 0.5 tab PO BID 02/15/23 02/15/23 History (formulary)] Omeprazole 20 mg PO DAILY 02/15/23 02/15/23 History Sertraline [Zoloft] 50 mg PO DAILY 02/15/23 02/15/23 History dexAMETHasone [Decadron] 1 mg PO DAILY 02/15/23 02/15/23 History levETIRAcetam [Keppra] 500 mg PO Q12HR 02/15/23 02/15/23 History Allergies Allergy/AdvReac Type Severity Reaction Status Date / Time No Known Allergies Allergy Verified 02/15/23 22:39 Physical Exam Vitals: Vital Signs Temp Pulse Resp BP Pulse Ox 02/16/23 12:00 98.3 F 71 12 121/57 98 02/16/23 09:00 98 F 70 12 132/59 98 02/16/23 08:28 97 02/16/23 06:39 70 14 103/49 96 02/16/23 03:47 75 20 122/59 98 02/16/23 03:19 98.9 F 02/16/23 01:10 70 18 122/61 98 02/15/23 23:00 67 18 114/67 98 02/15/23 22:15 69 18 128/70 96 02/15/23 21:43 100.2 F H 84 18 146/71 96 Intake and Output 06/06/0102/16/23 02/16/23 22:59 06:59 14:59 Other: Weight 54.5 kg PHYSICAL EXAMINATION: GENERAL: The patient is alert and oriented x3, not in any acute distress. Well developed, well nourished. HEENT: Pupils are round and equally reacting to light. EOMI. No scleral icterus. No conjunctival pallor. Normocephalic, atraumatic. No pharyngeal erythema. No thyromegaly. CARDIOVASCULAR: S1 and S2 present. No murmurs, rubs, or gallops. PULMONARY: Chest is clear to auscultation, no wheezing or crackles. ABDOMEN: Soft, nontender, nondistended, normoactive bowel sounds. No palpable organomegaly. MUSCULOSKELETAL: No joint swelling or deformity. EXTREMITIES: No cyanosis, clubbing, or pedal edema. NEUROLOGICAL: Gross neurological examination did not reveal any focal deficits. SKIN: No rashes. Results CBC & Chem 7: 02/15/23 21:49 02/15/23 21:49 Labs: Abnormal Lab Results - Last 24 Hours (Table) 02/15/23 02/15/23 02/15/23 Range/Units 21:49 21:49 21:49 WBC 17.9 H (3.8-10.6) k/uL Neutrophils # 16.3 H (1.3-7.7) k/uL Lymphocytes # 0.8 L (1.0-4.8) k/uL APTT 21.5 L (22.0-30.0) sec Sodium 132 L (137-145) mmol/L Chloride 95 L (98-107) mmol/L Glucose 155 H (74-99) mg/dL Assessment and Plan Assessment: 1. Acute bilateral lower extremity weakness - Likely related to right midline shift; patient had NIH stroke scale of; neurology is consulted and recommending to rule out stroke/TIA versus seizures They do not want her to be transferred for neurosurgical evaluation and understand she is poor porgnosis and want her to remain in our facility. She had recent MRI Brain about 2 weeks go and were told it was worse. She is following-up with neurosurgeon over at [facility]. She was started on Decadron 6mg every 6 hours with 10mg once. -- Oncology is consulted. The wants to speak and find out if radiation or chemotherapy will be any beneficial and if not he does not want them. 2. Recent diagnosis of glioblastoma multiforme; right temporal mass in 11/29 with vasogenic edema and midline shift and had needle biopsy slight above a week ago. She refusing surgical intervention - Patient had a recent MRI done and follows up with the surgeon at [facility]; requesting no surgical treatment 3. History of seizures likely related to glioblastoma; continue with home dose of Keppra 500 mg every 12 hours 4. Hypothyroidism; levothyroxine 50 MCG daily 5. Hyperlipidemia; Lipitor 20 mg by mouth daily at bedtime 6. Depression/anxiety; continue with home dose of Zoloft and Xanax
[2023-02-17] MEDS: LEVOTHYROXINE 25 MCG TAB PO SCH (14:29)
[2023-02-17 15:43] LABS: Basophils % (A) 0 %; Eosinophils % (A) 0 %; HCT 37.8 % (34.0-46.0); HGB 12.4 gm/dL (11.4-16.0); Lymphocytes # (A) 0.6 k/uL (1.0-4.8); Lymphocytes % (A) 3 %; MCH 30.5 pg (25.0-35.0); MCHC 32.7 g/dL (31.0-37.0); MCV 93.2 fL (80.0-100.0); Mean Platelet Volume 6.9; Monocytes # (A) 0.4 k/uL (0-1.0); Monocytes % (A) 2 %; Neutrophils # (A) 20.5 k/uL (1.3-7.7); Neutrophils % (A) 95 %; Platelet Count 432 k/uL (150-450); RBC 4.06 m/uL (3.80-5.40); RDW 12.1 % (11.5-15.5); WBC 21.7 k/uL (3.8-10.6)
[2023-02-17 15:47] LABS: African American GFR (CKD) 78 (>60 ml/min/1.73 sqM); Anion Gap 11 mmol/L; Blood Urea Nitrogen 24 mg/dL (7-17); Calcium 9.3 mg/dL (8.4-10.2); Carbon Dioxide 26 mmol/L (22-30); Chloride 96 mmol/L (98-107); Glucose 157 mg/dL (74-99); Non-African American GFR(CKD) 68 (>60 ml/min/1.73 sqM); Potassium 4.4 mmol/L (3.5-5.1); Sodium 133 mmol/L (137-145)
== END 2023-02-17 15:00 | disposition hospice, home (50) | DRG 64 ==
LOC: EC 21:41 → 5NMEDONC 02-16 00:28
PROVIDERS: ADMIT Internal Medicine; ATTEND Internal Medicine
DX: I63.9 Cerebral infarction, unspecified (principal); G93.6 Cerebral edema; C71.2 Malignant neoplasm of temporal lobe; G81.94 Hemiplegia, unspecified affecting left nondominant side; G40.89 Other seizures; H53.461 Homonymous bilateral field defects, right side; G91.4 Hydrocephalus in diseases classified elsewhere; G93.89 Other specified disorders of brain; F32.A Depression, unspecified; E03.9 Hypothyroidism, unspecified; R29.810 Facial weakness; Z66 Do not resuscitate; Z51.5 Encounter for palliative care; R29.703 NIHSS score 3; R27.0 Ataxia, unspecified; E78.5 Hyperlipidemia, unspecified; F41.9 Anxiety disorder, unspecified; Z79.899 Other long term (current) drug therapy; Z79.890 Hormone replacement therapy; Z80.3 Family history of malignant neoplasm of breast; Z80.0 Family history of malignant neoplasm of digestive organs
CPT/HCPCS: 36415; 70450; 70496; 70498; 71045; 80048; 80053; 81003; 82550; 84484; 85025; 85610; 85730; 93005; 94760; 96374; 96375; 96376; 99291